=== PATIENT | male | born 1995 | race African-American/Black ===

== ENCOUNTER 2022-03-07 23:41 | Emergency (ER) | payer BC, SELFPAY ==
--- NOTE | ~2022-03-07 | XR_ITS ---
XR chest 2V DATE: 03/08/2022 00:06 INDICATION: Left mid axillary chest pain TECHNIQUE: PA and lateral views COMPARISON: None FINDINGS: Probable old healed left clavicular shaft fracture. Mild thoracic scoliosis. Normal heart size. No hilar or mediastinal enlargement. No pulmonary infiltrate or consolidation, pleural effusion or pulmonary vascular congestion or pneumo thorax. IMPRESSION: No active cardiopulmonary disease Reviewed, dictated and finalized at location A. NER CONTINUOUS
--- NOTE | ~2022-03-07 | CT_ITS ---
EXAMINATION: CT abdomen pelvis w con DATE: 03/08/2022 01:47 INDICATION: Abdominal pain, blood in stool. TECHNIQUE: Computed tomography (CT) of the abdomen and pelvis was performed with 100 CC Omnipaque 350 intravenous contrast. Automated exposure control and iterative reconstruction technique were employe d. Exam dose: 184.69 mGy-cm total exam DLP. COMPARISON: 03/08/2022 PA and lateral chest FINDINGS: The lung bases are clear. Normal heart size. No pericardial or pleural effusion. The liver, gallbladder, bile ducts, spleen, pancreas, pancreatic duct, and adrenal glands and kidneys are unremarkable. Normal caliber of the abdominal aorta. No intraperitoneal or retroperitoneal or pe lvic mass lesion or adenopathy or ascites is detected. No bowel obstruction, bowel wall thickening, pneumatosis or intraperitoneal free air is evident. Included skeletal structures are unremarkable. IMPRESSION: No significant abnormality Reviewed, dictated and finalized at Location A. Reviewed, dictated and finalized at location A. LER ASSEMBLER IMPRESSION: No significant abnormality
[2022-03-07 23:37] VITALS: BP 139/105; PULSE 61; RESP 16; TEMP 36.3; O2SAT 100
--- NOTE | 2022-03-07 23:47 | PC.NURSE ---
When asked [place] Suicide Risk Assessment, patient states I have thoughts of harming myself everyday. Patient denies a plan or any intention to act on these thoughts. Reports he has been talking to his dad about these thoughts. EDP Verenice notified, no further interventions at this time.
--- NOTE | 2022-03-07 23:48 | ED.CHESTPAIN ---
HPI - Chest Pain General Chief Complaint: Chest Pain Stated Complaint: CP, UPPER ABD PAIN Source: RN notes reviewed History of Present Illness HPI narrative: Patient presents emergency department from home via EMS for right-sided chest pain. Patient states symptoms began approximate 30 minutes prior to arrival and states that he had been laying down and had just recently smoked marijuana and had a drink of alcohol when he developed pain in his right lower ribs radiating to his right side states the pain was aching in nature states he took 2 baby aspirin and the pain is now resolved he denies any shortness of breath he notes mild nausea that is now resolved he denies any vomiting or diarrhea states that he has had no recent illness he denies any fevers or chills patient does state that he has had some blood in his stool in the past but denies having any blood in his stool today Review of Systems Review of Systems: Gen.: Denies fevers or chills ENT: Denies congestion Respiratory: Denies shortness of breath or cough CV: Right-sided chest pain GI: Denies abdominal pain nausea, emesis or diarrhea Musculoskeletal: Denies back pain or muscle pain Neuro: Denies numbness, tingling, weakness or focal weakness Skin: Denies rash Except as documented, all other systems reviewed and negative [facility] Past Medical History Medical History (Updated 03/08/22 @ 06:46 by Dave Caldera DO) Patient denies significant medical history Social History Social History (Updated 03/08/22 @ 02:52 by Dave Caldera DO) Smoking status: Current every day smoker Substance use type: marijuana Exam Narrative: APPEARANCE: No acute distress, nontoxic, resting in bed HEENT: Normocephalic, atraumatic, OMM RESPIRATORY: No respiratory distress, clear to auscultation bilaterally with no rhonchi wheezing or rales CARDIOVASCULAR: RRR s murmur ABDOMINAL: Soft nondistended mild tenderness right upper quadrant no tenderness left upper quadrant, left lower quadrant no tenderness in right lower quadrant no rebound or guarding MUSCULOSKELETAl: Moves all extremities. No clubbing, cyanosis or edema. NEURO: Awake and alert. Following commands, speech normal, no focal deficits SKIN:: Warm, dry. Normal Color PSYCHIATRIC: Positive suicidal ideation denies homicidal ideation Course Course Emergency Course: Patient was asked screening questions upon arrival he states he does have daily thoughts of harming himself he states that he has not acted upon this and does not have a definitive plan of how he would harm himself Patient evaluated crisis day care aide. At this time the patient does not have any current suicidal ideation is felt that the patient may be discharged with a safety contract and follow as an outpatient Discussed with the patient resting comfortably in bed no pain at this time patient denies any suicidal ideation. I discussed with patient further has noted blood in his stool he states he does notice occasional blood in his stool states it is not daily he has never been worked up for this before in the past will refer to GI Discussed with patient results of workup and diagnosis. Discussed need for follow-up with primary care, proper use of medication, and reasons to return to the emergency department. Patient understands and agrees to current treatment plan Vital Signs Vital signs: Vital Signs Temperature 97.4 F L 03/07/22 23:37 Pulse Rate 61 03/07/22 23:37 Respiratory Rate 16 03/07/22 23:37 Blood Pressure 139/105 H 03/07/22 23:37 Pulse Oximetry 100 03/07/22 23:37 Oxygen Delivery Room Air 03/07/22 23:37 Temperature 97.4 F L 03/07/22 23:37 Pulse Rate 60 03/08/22 04:27 Respiratory Rate 18 03/08/22 04:27 Blood Pressure 135/85 03/08/22 04:27 Pulse Oximetry 98 03/08/22 04:27 Oxygen Delivery Room Air 03/07/22 23:48 MDM - Chest Pain MDM Narrative Medical decision making narrative: Patient's EKGs and labs are without sign
--- NOTE | 2022-03-07 23:54 | ECG_ITS ---
Measurements Intervals [place] Rate: 60 P: 83 [place]: 151 QRS: 74 QRSD: 105 T: 60 QT: 377 QTc: 377 Interpretive Statements SINUS RHYTHM WITH SINUS ARRHYTHMIA INCOMPLETE RIGHT BUNDLE BRANCH BLOCK CANNOT RULE OUT SEPTAL INFARCT, AGE INDETERMINATE BASELINE ARTIFACT- I, III, AVR, AVL, AVF ABNORMAL ECG NO PREVIOUS ECG AVAILABLE FOR COMPARISON Electronically Signed On 03-08-2022 8:34:24 COMPLIANCE [place] by Pedro Carter D.O.
[2022-03-08] VITALS (17 sets, daily range): BP systolic 113–135; BP diastolic 62–91; PULSE 54–65; RESP 12–20; O2SAT 98–100
--- NOTE | 2022-03-08 00:01 | PC.NURSE ---
Per EDP Verenice, no sitter needed.
[2022-03-08 00:28] LABS: Basophils Percent Auto 0.4 % (0.2-1.2); Eosinophils Percent Auto 0.8 % (0-4.4); Hematocrit 43.6 % (42.0-52.0); Hemoglobin 14.3 g/dL (14.0-18.0); Immature Granulocyte Absolute 0.01 K/mm3 (0.00-0.031); Immature Granulocyte Percent A 0.2 % (0-0.5); Lymphocytes Absolute Auto 1.97 K/mm3 (0.9-3.2); Lymphocytes Percent Auto 40.1 % (18.3-44.2); Mean Corpuscular HGB Conc 32.8 g/dl (32-36); Mean Corpuscular Hemoglobin 27.2 pg (26-34); Mean Corpuscular Volume 82.9 fl (80-100); Mean Platelet Volume 11.1 fl (7.4-10.4); Monocytes Absolute Auto 0.6 K/mm3 (0.1-0.6); Monocytes Percent Auto 12.2 % (2.6-8.5); Neutrophils Absolute Auto 2.3 K/mm3 (1.3-6.7); Neutrophils Percent Auto 46.3 % (45.5-73.1); Platelet Count Result 196 k/mm3 (150-375); Red Blood Count 5.26 M/mm3 (4.6-6.20); Red Cell Distribution Width 13.2 % (11.5-14.5); White Blood Count 4.9 K/mm3 (4.5-10.0)
[2022-03-08 00:31] LABS: Alanine Aminotransferase 17 U/L (6-50); Alkaline Phosphatase 54 U/L (38-126); Anion Gap 11 mmol/L (8-16); Aspartate Amino Transferase 30 U/L (17-59); Bilirubin,Total 0.4 mg/dL (0.2-1.3); Blood Urea Nitrogen 15 mg/dL (9-20); Calcium 9.6 mg/dL (8.4-10.2); Carbon Dioxide 27 mmol/L (22-30); Chloride 103 mmol/L (98-107); Estimated CRCL calculation 81 ml/min; Estimated Glomerular Filt Rate > 60; Glucose 88 mg/dL (65-110); Lipase 265 U/L (23-300); Potassium 3.9 mmol/L (3.4-5.0); Sodium 141 mmol/L (137-145)
[2022-03-08 00:33] LABS: Partial Thromboplastin Time 28.6 SECONDS (22.3-36.8)
[2022-03-08 00:41] LABS: Troponin I < 0.012 ng/mL (0.000-0.034)
[2022-03-08 00:54] LABS: Ethanol < 10 mg/dL (<10)
[2022-03-08 01:03] LABS: Thyroid Stimulating Hormone 0.664 uIU/mL (0.465-4.680)
[2022-03-08 01:05] LABS: Appearance Urine Clear (Clear); Bilirubin Urine Negative (Negative); Blood Urine Negative (Negative); Color Urine Yellow (Yellow); Glucose Urine UA Negative (Negative); Ketones Urine Negative (Negative); Leukocyte Esterase Ur Negative LEU/UL (Negative); Nitrate Urine Negative (Negative); Protein Urine Negative (Negative); Specific Grav Ur 1.025 (1.001-1.035); Urobilinogen Urine 0.2 mg/dL (<2.0); pH Urine 7.5 (5.0-9.0)
[2022-03-08 01:19] LABS: Amphetamine Screen Urine Negative (Negative); Barbiturate Screen Urine Negative (Negative); Benzodiazepines Screen Urine Negative (Negative); Cannabinoid Screen Urine Positive (Negative); Cocaine Screen Urine Negative (Negative); Methadone Screen Urine Negative (Negative); Opiate Screen Urine Negative (Negative); Phencyclidine Screen Urine Negative (Negative)
[2022-03-08 01:25] LABS: Bacteria Urine Trace /hpf; Mucus Urine Few /lpf; RBC Urine 0-2 /hpf (0-2); Squamous Epithelial Cell Urine Rare /hpf (Few)
[2022-03-08 01:27] LABS: Add Urine Microscopic? NO
[2022-03-08 02:38] LABS: Influenza A QL RT-PCR Negative (Negative); Influenza B QL RT-PCR Negative (Negative); SARS-CoV-2 RNA PCR Negative
--- NOTE | 2022-03-08 04:25 | PC.NURSE ---
Crisis left at this time. States they went over multiple resources and coping skills with patient. Patient updated on plan of care to have 6 hour troponin drawn. Patient resting comfortably in bed. Patient given food and water.
[2022-03-08 06:14] LABS: Troponin I < 0.012 ng/mL (0.000-0.034)
== END 2022-03-08 07:06 | disposition home or self-care (01) ==
PROVIDERS: Emergency Provider Emergency Medicine
DX: R07.89 Other chest pain (principal); R10.11 Right upper quadrant pain; Z20.822 Contact with and (suspected) exposure to COVID-19; F17.200 Nicotine dependence, unspecified, uncomplicated; I45.10 Unspecified right bundle-branch block; R94.31 Abnormal electrocardiogram [ECG] [EKG]
CPT/HCPCS: 36415; 71046; 74177; 80053; 80307; 81003; 83690; 84443; 84484; 85025; 85610; 85730; 87636; 93005; 99284; Q9967

== ENCOUNTER 2022-04-02 00:14 | Emergency (ER) | payer BC, SELFPAY ==
[2022-04-02 00:43] VITALS: BP 101/60; PULSE 67; RESP 18; TEMP 37.1; O2SAT 100
[2022-04-02 01:52] LABS: Basophils Percent Auto 0.6 % (0.2-1.2); Eosinophils Absolute Auto 0.1 K/mm3 (0-0.3); Eosinophils Percent Auto 0.7 % (0-4.4); Hematocrit 42.9 % (42.0-52.0); Hemoglobin 13.6 g/dL (14.0-18.0); Immature Granulocyte Absolute 0.02 K/mm3 (0.00-0.031); Immature Granulocyte Percent A 0.3 % (0-0.5); Lymphocytes Absolute Auto 1.67 K/mm3 (0.9-3.2); Lymphocytes Percent Auto 23.9 % (18.3-44.2); Mean Corpuscular HGB Conc 31.7 g/dl (32-36); Mean Corpuscular Hemoglobin 27.2 pg (26-34); Mean Corpuscular Volume 85.8 fl (80-100); Mean Platelet Volume 10.8 fl (7.4-10.4); Monocytes Absolute Auto 0.4 K/mm3 (0.1-0.6); Monocytes Percent Auto 5.7 % (2.6-8.5); Neutrophils Absolute Auto 4.8 K/mm3 (1.3-6.7); Neutrophils Percent Auto 68.8 % (45.5-73.1); Platelet Count Result 171 k/mm3 (150-375); Red Cell Distribution Width 13.5 % (11.5-14.5)
[2022-04-02 01:54] LABS: Add Urine Microscopic? NO; Appearance Urine Clear (Clear); Bilirubin Urine Negative (Negative); Blood Urine Negative (Negative); Color Urine Light Yellow (Yellow); Glucose Urine UA Negative (Negative); Ketones Urine Negative (Negative); Leukocyte Esterase Ur Negative LEU/UL (Negative); Nitrate Urine Negative (Negative); Protein Urine Negative (Negative); Urobilinogen Urine 0.2 mg/dL (<2.0)
[2022-04-02 01:58] LABS: Mucus Urine Rare /lpf; RBC Urine 0-2 /hpf (0-2); Squamous Epithelial Cell Urine Rare /hpf (Few); WBC Urine 0-3 /hpf
[2022-04-02 02:08] LABS: Ethanol < 10 mg/dL (<10)
[2022-04-02 02:09] LABS: Alanine Aminotransferase 16 U/L (6-50); Albumin Level 4.4 g/dL (3.5-5.1); Alkaline Phosphatase 42 U/L (38-126); Amphetamine Screen Urine Negative (Negative); Anion Gap 6 mmol/L (8-16); Aspartate Amino Transferase 23 U/L (17-59); Barbiturate Screen Urine Negative (Negative); Benzodiazepines Screen Urine Negative (Negative); Bilirubin,Total 0.2 mg/dL (0.2-1.3); Blood Urea Nitrogen 14 mg/dL (9-20); Calcium 8.9 mg/dL (8.4-10.2); Cannabinoid Screen Urine Positive (Negative); Carbon Dioxide 29 mmol/L (22-30); Chloride 103 mmol/L (98-107); Cocaine Screen Urine Negative (Negative); Estimated CRCL calculation 90 ml/min; Estimated Glomerular Filt Rate > 60; Glucose 90 mg/dL (65-110); Methadone Screen Urine Negative (Negative); Opiate Screen Urine Negative (Negative); Phencyclidine Screen Urine Negative (Negative); Potassium 3.6 mmol/L (3.4-5.0); Sodium 138 mmol/L (137-145)
[2022-04-02 02:31] LABS: Influenza A QL RT-PCR Negative (Negative); Influenza B QL RT-PCR Negative (Negative); SARS-CoV-2 RNA PCR Negative
[2022-04-02 02:39] LABS: Thyroid Stimulating Hormone 0.858 uIU/mL (0.465-4.680)
--- NOTE | 2022-04-02 02:49 | ED.GENADULT ---
HPI - General Adult General Chief complaint: Psychiatric Symptoms Stated complaint: rectal bleeding Time Seen by Provider: 04/02/22 01:20 History of Present Illness HPI narrative: Patient is a 27-year-old male who presents ER with 2 separate issues. Main issue that he came in last night is the fact that he has a bulge around his rectum and when he defecates he has bright red blood mixed in with the stool. He has been having firm hard stools that he strains to get out for several months and he has been having intermittent bleeding for several months as well. He is tried no medications and has not been evaluated by a physician. No abdominal discomfort or diarrhea. No fevers or chills or sweats. Has not had issues like this previously. While patient was being triaged he did endorse that he has daily thoughts of suicidal ideation. He has no plan but while taking an ambulance here he was asking the medics about the ingredients contained in a lethal injection. He has never attempted to take his own life and has not had a psychiatric hospitalization. He has been seen previously for a health evaluation and was given crisis resources, he reports he called phone #1 time and then discarded the paperwork. Related Data Allergies Allergy/AdvReac Type Severity Reaction Status Date / Time No Known Allergies Allergy Unverified 03/27/22 11:44 Review of Systems Review of Systems: All systems reviewed & are unremarkable except as noted in HPI and below Constitutional: Constitutional: Denies chills, Denies fatigue and Denies fever(s) ENT: Denies nasal congestion and Denies sore throat Cardiovascular: Cardiovascular: Denies chest pain, Denies rapid heart rate and Denies radiating jaw, neck or arm pain Respiratory: Respiratory: Denies cough and Denies dyspnea Gastrointestinal: Gastrointestinal: Denies abdominal pain, Reports constipation, Denies nausea and Denies vomiting Comments: Rectal bleeding Neurologic: Denies headache(s), Denies focal weakness and Denies numbness Psychiatric: Psychiatric: Denies anxiety, Reports depression, Denies homicidal ideation and Reports suicidal ideation PMF Past Medical History Medical History (Updated 04/02/22 @ 08:03 by Owen Wagoner MD) Patient denies significant medical history Tobacco abuse Family History Family History (Updated 03/27/22 @ 11:45 by Elke Fox MA) Father Cancer Social History Social History (Reviewed 12/13/22 @ 11:32 by AMARI Gill Smoking status: Current every day smoker Substance use type: marijuana Exam Narrative: GENERAL: Well-appearing, well-nourished, and in no acute distress. HEAD: Normocephalic, atraumatic. EYES: PERRL and EOMI. ENT: Mucous membranes moist. CHEST: Clear to auscultation. No respiratory distress. HEART: Regular rate and rhythm. Normal peripheral pulses. ABDOMEN: Soft, nontender, nondistended. Rectal exam with nonthrombosed inflamed hemorrhoids around the rectum. No active bleeding. EXTREMITIES: Normal range of motion. No edema. SKIN: Warm, dry, no rash. NEURO: Alert and oriented x3. PSYCH: Flat personality, reports thoughts with suicidal ideation without plan or intent. He is not responding to internal stimuli. No HI. Course Reevaluation(s) Reevaluation #1: Patient medically cleared for crisis evaluation. Date: 04/02/22 Time: 04:17 Reevaluation #2: Crisis evaluated patient. Contracted for safety. Patient educated about hemorrhoids. Discharge home. Date: 04/02/22 Time: 08:01 Vital Signs Vital signs: Vital Signs Temperature 98.7 F 04/02/22 00:43 Pulse Rate 67 04/02/22 00:43 Respiratory Rate 18 04/02/22 00:43 Blood Pressure 101/60 04/02/22 00:43 Pulse Oximetry 100 04/02/22 00:43 Oxygen Delivery Room Air 04/02/22 00:43 Temperature 98.7 F 04/02/22 00:43 Pulse Rate 67 04/02/22 00:43 Respiratory Rate 18 04/02/22 00:43 Blood Pressure 101/60 04/02/22 00:43 Pulse
--- NOTE | 2022-04-02 03:43 | PC.NURSE ---
Called Crisis hotline for an update as to arrival. Cari states arrival time in approximately 40 mins.
[2022-04-02] MEDS: WITCH HAZEL 40 PADS 1 PAD TOPICAL (06:26)
[2022-04-02] MEDS: ACETAMINOPHEN 500 MG TABLET 1000 MG (06:30)
[2022-04-02 08:10] VITALS: BP 122/67; PULSE 64; RESP 15; TEMP 36.6; O2SAT 100
== END 2022-04-02 08:18 | disposition home or self-care (01) ==
PROVIDERS: Emergency Provider Emergency Medicine
DX: K64.9 Unspecified hemorrhoids (principal); Z20.822 Contact with and (suspected) exposure to COVID-19; F17.200 Nicotine dependence, unspecified, uncomplicated; F32.A Depression, unspecified
CPT/HCPCS: 36415; 80053; 80307; 81003; 84443; 85025; 87636; 99284; A9270

== ENCOUNTER 2022-06-05 00:15 | Day surgery (SDC) | payer OTHER, SELFPAY ==
[2022-05-21 11:34] VITALS: BMI 21.0
[2022-06-05 10:44] VITALS: BP 98/68; PULSE 67; RESP 14; TEMP 36.7; O2SAT 100
[2022-06-05] MEDS: LACTATED RINGERS 1,000 ML 150 ML IV CONT (10:55)
--- NOTE | 2022-06-05 11:43 | P.PNAN_ITS ---
Anes - Initial Pre Proc Eval Procedure: Operation Date: 06/05/22 12:30 Proposed Procedures p Colonoscopy - Merlin Adkins MD Date/Time: 06/05/22 11:43 Surgeon: Merlin Adkins MD Pre Op Diagnosis: melena, diarrhea Patient Data Age: 27 Gender: M Height: 1.83 m Weight: 70.7 kg Last Vital Signs Temp 36.7 C 06/05/22 10:44 Pulse 67 06/05/22 10:44 Resp 14 06/05/22 10:44 BP 98/68 L 06/05/22 10:44 Pulse Ox 100 06/05/22 10:44 O2 Del Method Room Air 06/05/22 10:44 Allergies Allergy/AdvReac Type Severity Reaction Status Date / Time No Known Allergies Allergy Verified 06/05/22 10:44 Home Medications Medication Instructions Recorded Confirmed Type No Home Medications 05/21/22 05/21/22 History Patient hx anesthesia problems: none Family hx anesthesia problems: none Results Review: All pre-operative results and documents have been reviewed as part of the pre- operative evaluation. [facility] Past Medical History Medical History (Updated 04/03/22 @ 00:00 by Juancarlos Wilder) Patient denies significant medical history Tobacco abuse Family History Family History (Updated 03/27/22 @ 11:45 by Elke Fox MA) Father Cancer Social History Social History Smoking status: Former smoker Tobacco type: cigarettes Alcohol intake: current Alcohol use details: occasionally Substance use: current Substance use type: marijuana Other substance usage details: occasionally Living arrangements: with family Spiritual care concerns: No Anes - Eval Final PreProcedure Day of Procedure 06/05/22 11:43 Patient weight: normal Heart: regular rate and rhythm Lungs: clear to auscultation and normal air movement Airway: Mallampati scale class II Neurological: alert and oriented Last oral intake: >/= 8 hours ASA classification: II Emergent: no Anesthetic plan: proceed Anesthesia type and monitoring: general GIVS and standard monitoring Results Review: All pre-operative results and documents have been reviewed as part of the pre- operative evaluation. Informed Consent: The patient's anesthetic plan and its attendant risks and benefits were discussed with the patient/family/POA. Questions were solicited and answers provided to the satisfaction of the patient/family/POA.
--- NOTE | 2022-06-05 11:44 | PM.HPGS ---
History of Present Illness History of Present Illness Consent: Risks, benefits, and alternatives have been discussed and questions answered. Patient agrees to proceed with procedure. Chief complaint: melena, diarrhea Narrative: Franklyn Ahumada is a 27 year old male with intermittent blood in stools and also lately more difficulty to empty bowels, never had colonoscopy, CT Scan without major findings. Review of Systems Constitutional: Constitutional: Denies headache(s) and Denies weakness Eyes: Eyes: Denies blurry vision ENT: Reports Normal hearing present, Denies headache(s) and Denies neck pain Cardiovascular: Cardiovascular: Denies chest pain and Denies dyspnea Respiratory: Respiratory: Denies dyspnea Gastrointestinal: Gastrointestinal: Reports no additional gastrointestinal complaints Genitourinary: Genitourinary: Denies dysuria Musculoskeletal: Musculoskeletal: Denies neck pain Integumentary/Breasts: Skin/Breast: Denies dry skin Neurologic: Reports Normal hearing present, Denies headache(s) and Denies weakness Psychiatric: Psychiatric: Denies anxiety Endocrine: Endocrine: Denies change in body appearance Hematologic/Lymphatic: Hematologic/Lymphatic: Denies easy bleeding Allergic/Immunologic: Allergic/Immunologic: Denies urticaria PMFSH Past Medical History Medical History (Updated 06/05/22 @ 11:45 by Merlin Adkins MD) Patient denies significant medical history Rectal bleeding Tobacco abuse Family History Family History (Updated 03/27/22 @ 11:45 by Elke Fox MA) Father Cancer Social History Social History Smoking status: Former smoker Tobacco type: cigarettes Alcohol intake: current Alcohol use details: occasionally Substance use: current Substance use type: marijuana Other substance usage details: occasionally Living arrangements: with family Spiritual care concerns: No Meds Home Medications and Allergies Home Medications Medication Instructions Recorded Confirmed Type No Home Medications 05/21/22 05/21/22 History Allergies Allergy/AdvReac Type Severity Reaction Status Date / Time No Known Allergies Allergy Verified 06/05/22 10:44 Vital Signs Vital Signs - 24 hr 06/05/22 10:44 Temperature 98.1 F Pulse Rate 67 Respiratory Rate 14 Blood Pressure 98/68 L Pulse Oximetry 100 Oxygen Delivery Room Air Exam Const: General: comfortable and no acute distress HENMT: Face/Nose/Sinus: Normal nares present Eyes: General: appearance normal, both eyes and all related structures Neck: Neck: no JVD Resp: Auscultation: clear to auscultation bilaterally Cardio: Rate: regular rate Rhythm: regular rhythm GI: Inspection: non-distended GI Palp: Yes Soft to palpation Skin: General skin exam: normal color Neuro: General: gait normal Speech: normal speech Extrem: General: normal to inspection Psych: Mental Status: mental status grossly normal Assessment and Plan Assessment and plan (1) Rectal bleeding: Code(s): K62.5 - Hemorrhage of anus and rectum Status: Acute Assessment and Plan: colonoscopy
[2022-06-05 12:11] VITALS: BP 89/36; PULSE 58; RESP 19; O2SAT 100
[2022-06-05 12:21] VITALS: BP 95/41; PULSE 50; RESP 23; O2SAT 100
[2022-06-05 12:31] VITALS: BP 95/63; PULSE 63; RESP 24; O2SAT 100
== END 2022-06-05 12:41 | disposition home or self-care (01) ==
PROVIDERS: Visit Provider Internal Medicine Gastroenterology
PROC: 0DJD8ZZ Inspection of Lower Intestinal Tract, Via Natural or Artificial Opening Endoscopic (ICD-10-PCS; CPT 45378; principal; 2022-06-05 12:30)
DX: K92.1 Melena (principal); K64.8 Other hemorrhoids; Z87.891 Personal history of nicotine dependence; F12.90 Cannabis use, unspecified, uncomplicated
CPT/HCPCS: 45378; J2704; J7120

== ENCOUNTER → 2022-06-13 15:02 | Outpatient (CLI) | payer OTHER, SELFPAY ==
--- NOTE | ~2022-06-13 | XR_ITS ---
EXAMINATION:XR cervical spine 4-5V DATE: 06/13/2022 15:35 INDICATION: Neck pain TECHNIQUE: AP, lateral, lateral swimmers and odontoid views of the cervical spine are provided. COMPARISON: None FINDINGS: There is straightening of the cervical spine which can be positional or due to muscular spa sm. Alignment is normal. The odontoid process is intact. No fracture is identified. Vertebral body he ights and disk spaces are normal. Prevertebral soft tissues are normal. IMPRESSION: 1. No acute osseous abnormality. Reviewed, dictated and finalized at location F. GATE KEEPER
--- NOTE | ~2022-06-13 | XR_ITS ---
LUMBAR SPINE INDICATION: Low back pain TECHNIQUE: views lumbar spine COMPARISON: None FINDINGS: No fracture, subluxation or dislocation. No evidence for spondylolysis or spondylolisthesi s. Vertebral bodies and disk spaces are preserved. IMPRESSION: 1: No significant abnormality of the lumbar spine identified. Reviewed, dictated and finalized at location B. CAL FILE CLERK
== END ==
PROVIDERS: PCP Nurse Practitioner Family; Visit Provider Nurse Practitioner Family
DX: M54.50 Low back pain, unspecified (principal); M79.604 Pain in right leg; M79.605 Pain in left leg; M54.2 Cervicalgia
CPT/HCPCS: 72050; 72110

== ENCOUNTER 2022-06-28 13:59 | Outpatient (CLI) | payer OTHER, SELFPAY ==
[2022-06-28 14:45] LABS: Appearance Urine Clear (Clear); Bilirubin Urine Negative (Negative); Blood Urine Negative (Negative); Color Urine Yellow (Yellow); Glucose Urine UA Negative (Negative); Ketones Urine Negative (Negative); Leukocyte Esterase Ur Negative LEU/UL (Negative); Nitrate Urine Negative (Negative); Protein Urine Negative (Negative); Specific Grav Ur 1.005 (1.001-1.035); Urobilinogen Urine 0.2 mg/dL (<2.0); pH Urine 6.5 (5.0-9.0)
[2022-06-28 15:04] LABS: Add Urine Microscopic? NO
[2022-06-28 17:21] LABS: Alanine Aminotransferase 21 U/L (6-50); Albumin Level 4.4 g/dL (3.5-5.1); Alkaline Phosphatase 47 U/L (38-126); Anion Gap 6 mmol/L (8-16); Aspartate Amino Transferase 33 U/L (17-59); Bilirubin,Total 0.5 mg/dL (0.2-1.3); Blood Urea Nitrogen 17 mg/dL (9-20); Calcium 9.3 mg/dL (8.4-10.2); Carbon Dioxide 29 mmol/L (22-30); Chloride 105 mmol/L (98-107); Cholesterol 148 mg/dL (0-200); Estimated Glomerular Filt Rate > 60; Glucose 90 mg/dL (65-110); HDL Direct 68 mg/dL; Potassium 4.2 mmol/L (3.4-5.0); Sodium 140 mmol/L (137-145); Triglycerides 36 mg/dL (<150)
[2022-06-28 17:32] LABS: LDL Cholesterol Direct 56 mg/dL
[2022-06-28 17:55] LABS: Prostate Specific Antigen 0.9 ng/mL (< OR = 4.0)
[2022-06-28 18:30] LABS: Folic Acid 6.7 ng/mL (2.76->20)
== END 2022-06-28 14:00 | disposition home or self-care (01) ==
LOC: ANHLAB 14:00
PROVIDERS: PCP Nurse Practitioner Family; Visit Provider Nurse Practitioner Family
DX: R39.198 Other difficulties with micturition (principal); Z00.00 Encounter for general adult medical examination without abnormal findings; Z13.6 Encounter for screening for cardiovascular disorders; Z13.29 Encounter for screening for other suspected endocrine disorder; R30.0 Dysuria
CPT/HCPCS: 36415; 80053; 80061; 81003; 82607; 82746; 84153; 84443

== ENCOUNTER 2022-06-29 16:20 | Outpatient (CLI) | payer OTHER, SELFPAY ==
[2022-06-29 16:40] LABS: Basophils Percent Auto 0.6 % (0.2-1.2); Eosinophils Percent Auto 0.2 % (0-4.4); Hematocrit 44.9 % (42.0-52.0); Hemoglobin 14.4 g/dL (14.0-18.0); Immature Granulocyte Absolute 0.01 K/mm3 (0.00-0.031); Immature Granulocyte Percent A 0.2 % (0-0.5); Lymphocytes Absolute Auto 1.01 K/mm3 (0.9-3.2); Lymphocytes Percent Auto 20.6 % (18.3-44.2); Mean Corpuscular HGB Conc 32.1 g/dl (32-36); Mean Corpuscular Hemoglobin 26.9 pg (26-34); Mean Corpuscular Volume 83.8 fl (80-100); Mean Platelet Volume 10.9 fl (7.4-10.4); Monocytes Absolute Auto 0.3 K/mm3 (0.1-0.6); Monocytes Percent Auto 6.9 % (2.6-8.5); Neutrophils Absolute Auto 3.5 K/mm3 (1.3-6.7); Neutrophils Percent Auto 71.5 % (45.5-73.1); Platelet Count Result 179 k/mm3 (150-375); Red Blood Count 5.36 M/mm3 (4.6-6.20); Red Cell Distribution Width 13.2 % (11.5-14.5); White Blood Count 4.9 K/mm3 (4.5-10.0)
[2022-07-04 14:29] LABS: Testosterone Free 140.2 pg/mL (35.0-155.0); Testosterone Total 779 ng/dL (250-1100)
== END 2022-06-29 16:21 | disposition home or self-care (01) ==
LOC: ANHLAB 16:21
PROVIDERS: PCP Nurse Practitioner Family; Visit Provider Nurse Practitioner Family
DX: R79.89 Other specified abnormal findings of blood chemistry (principal); R53.83 Other fatigue; N52.9 Male erectile dysfunction, unspecified; Z13.0 Encounter for screening for diseases of the blood and blood-forming organs and certain disorders involving the immune mechanism
CPT/HCPCS: 36415; 84402; 84403; 84439; 85025

== ENCOUNTER 2023-03-09 23:57 | Emergency (ER) | payer OTHER, SELFPAY ==
[2023-03-10] VITALS (12 sets, daily range): BP systolic 105–127; BP diastolic 57–74; PULSE 68–98; RESP 14–16; TEMP 36.7–38; O2SAT 92–100
[2023-03-10 07:39] LABS: Influenza A QL RT-PCR Negative (Negative); Influenza B QL RT-PCR Negative (Negative); SARS-CoV-2 RNA PCR Positive (Negative)
[2023-03-10] MEDS: KETOROLAC (*BKC) 60 MG/2 ML VIAL IM (08:04)
[2023-03-10] MEDS: ACETAMINOPHEN 500 MG TABLET 1000 MG PO (08:04)
[2023-03-10] MEDS: ONDANSETRON HCL ODT 4 MG TABLET PO (08:05)
--- NOTE | 2023-03-10 08:25 | ED.FEVER ---
HPI - Fever General Chief Complaint: Fever Stated Complaint: headache, fever Time Seen by Provider: 03/10/23 07:07 Source: patient, RN notes reviewed and old records reviewed Mode of arrival: ambulatory Limitations: no limitations History of Present Illness HPI Narrative: This is a 27 year old male who presents for evaluation of URI symptoms. Patient states he develop body aches, congestion, cough, headache since last night. He has not taken any medication for his symptoms prior to arrival. Related Data Allergies Allergy/AdvReac Type Severity Reaction Status Date / Time No Known Allergies Allergy Unverified 07/27/22 14:21 Review of Systems Constitutional: Constitutional: Reports fever(s) and Denies weakness ENT: Reports nasal congestion Cardiovascular: Cardiovascular: Denies syncope, Denies rapid heart rate, Denies irregular heart rhythm, Denies leg edema and Denies dyspnea Respiratory: Respiratory: Denies chest congestion, Reports cough, Denies hemoptysis, Denies excessive phlegm production and Denies dyspnea Gastrointestinal: Gastrointestinal: Denies abdominal pain, Denies hematochezia, Denies diarrhea, Reports nausea and Reports vomiting Genitourinary: Genitourinary: Denies hematuria, Denies dysuria, Denies penile discharge and Denies testicular pain Musculoskeletal: Musculoskeletal: Reports myalgias, Denies joint swelling, Denies loss of height and Denies muscle weakness Neurologic: Denies syncope, Denies focal weakness and Denies weakness PMFSH Past Medical History Medical History Abdominal pain Anxiety Cervicalgia Constipation Decreased urine stream Dysuria Encounter to establish care Erectile dysfunction Fatigue Hemorrhoids Low back pain radiating to both legs Low TSH level Migraine Mild depression Patient denies significant medical history Rectal bleeding Tobacco abuse Family History Family History Father Cancer Social History Social History Smoking status: Former smoker Tobacco type: cigarettes Alcohol intake: current Alcohol use details: occasionally Substance use: current Substance use type: marijuana Other substance usage details: occasionally Lack of Transportation: No Lack of Food: Never True Current Housing: I Have Housing Concerned About Future Housing: No Difficulty Paying Gas/Electric Bills: No Difficulty Paying for Meds: No Currently Unemployed: No Education: High School Diploma/GED Difficulty w/ Childcare or Family Care: No Living arrangements: with family Spiritual care concerns: No Exam Const: General: no acute distress and alert Nutritional Appearance: well nourished Orientation/consciousness: patient oriented x3 HENMT: Head: normal to inspection Eyes: EOM: EOMs intact bilaterally Neck: Neck: normal visual inspection Chest: Chest palpation & inspection: normal inspection of the chest Resp: Effort & Inspection: normal respiratory effort Auscultation: clear to auscultation bilaterally Cardio: Rate: regular rate Rhythm: regular rhythm Heart sounds: no murmurs GI: GI Palp: Yes Soft to palpation, No Tenderness to palpation present (GI), No Guarding due to palpation present (GI) and No Rigid due to palpation Auscultation: normal bowel sounds Back/Spine/Pelvis: Back: no CVA tenderness Skin: General skin exam: normal color Rashes: no rashes Wounds: no wounds Neuro: General: patient oriented x3, moves all extremities and CN's II-XI intact bilaterally Extrem: General: normal to inspection and no pedal edema Psych: Appearance: grossly normal Mental Status: mental status grossly normal Affect: normal affect Attitude: cooperative Course Reevaluation(s) Reevaluation #1: I reviewed with patient that he has been found to be positive for COVID as cause of his
== END 2023-03-10 08:45 | disposition home or self-care (01) ==
PROVIDERS: Emergency Medicine; Emergency Provider General Practice; PCP Nurse Practitioner Family
DX: U07.1 COVID-19 (principal); Z87.891 Personal history of nicotine dependence
CPT/HCPCS: 87636; 96372; 99283; A9270; J1885